=== PATIENT | female | born 1980 | race Caucasian/White ===

== ENCOUNTER 2016-11-15 09:53 | Outpatient (CLI) | payer OTHER ==
[2016-11-15 10:36] LABS: BASOPHILS % (AUTO) 0.4 % (0.0-2.0); EOSINOPHILS # (AUTO) 0.1 K/uL (0.0-0.4); EOSINOPHILS % (AUTO) 0.9 % (0.0-4.0); HEMATOCRIT 35.7 % (36-48); HEMOGLOBIN 12.2 g/dL (12.0-16.0); LYMPHOCYTES # (AUTO) 1.4 K/uL (1.0-5.5); LYMPHOCYTES % (AUTO) 18.2 % (20.5-51.5); MEAN CORPUSCULAR HEMOGLOBIN 30 pg (27-31); MEAN CORPUSCULAR HGB CONC 34 % (32-36); MEAN CORPUSCULAR VOLUME 87 fL (79.0-98.0); MONOCYTES # (AUTO) 1.1 K/uL (0.0-1.0); MONOCYTES % (AUTO) 13.5 % (1.7-9.3); NEUTROPHILS # (AUTO) 5.3 K/uL (1.8-7.7); PLATELET COUNT (AUTO) 186 K/uL (130-430); RED BLOOD CELL COUNT(AUTO) 4.11 MIL/uL (4.2-6.2); RED CELL DISTRIBUTION WIDTH 12.6 % (9.0-15.0); WHITE BLOOD COUNT (AUTO) 7.9 K/uL (4.8-10.8)
[2016-11-15 10:48] LABS: ALBUMIN 2.6 g/dL (3.4-4.8); CALCIUM 9.1 mg/dL (8.4-11.0); CREATININE 0.54 mg/dL (0.55-1.30); POTASSIUM 4.1 mmol/L (3.5-5.1); TOTAL BILIRUBIN 0.3 mg/dL (0.0-1.0); TOTAL PROTEIN, SERUM 6.9 g/dL (6.4-8.3); URIC ACID 3.5 mg/dL (2.4-7.0)
== END 2016-11-15 18:34 | disposition home or self-care (01) ==
LOC: SLB 09:53
PROVIDERS: ATTEND Specialist
DX: O12.12 Gestational proteinuria, second trimester (principal); O09.513 Supervision of elderly primigravida, third trimester; Z3A.27 27 weeks gestation of pregnancy
CPT/HCPCS: 36415; 80053; 84550-TC; 85025

== ENCOUNTER 2016-11-21 10:49 | Inpatient (IN) | payer OTHER ==
[~2016-11-21] VITALS: Ht 167.6 cm; Wt 90.7 kg
[2016-11-21 12:07] VITALS: BP 139/96; PULSE 106; RESP 18; TEMP 98.4
[2016-11-21] MEDS ORDERED: OXYTOCIN/NORMAL SALINE 1,000 ML IV SCH (13:01)
[2016-11-21] MEDS ORDERED: LR 1,000 ML IV ONE (13:01)
[2016-11-21] MEDS ORDERED: NALBUPHINE HCL 10 MG/ML AMP IM PRN (13:15)
[2016-11-21] MEDS ORDERED: TERBUTALINE SULFATE 1 MG/ML VIAL SUBCUT ONE (13:15)
[2016-11-21] MEDS ORDERED: NALBUPHINE HCL 10 MG/ML AMP IVP PRN (13:15)
[2016-11-21 13:31] LABS: BASOPHILS % (AUTO) 0.3 % (0.0-2.0); EOSINOPHILS % (AUTO) 0.5 % (0.0-4.0); HEMATOCRIT 32.4 % (36-48); HEMOGLOBIN 11.4 g/dL (12.0-16.0); LYMPHOCYTES # (AUTO) 1.4 K/uL (1.0-5.5); LYMPHOCYTES % (AUTO) 17.7 % (20.5-51.5); MEAN CORPUSCULAR HEMOGLOBIN 30 pg (27-31); MEAN CORPUSCULAR HGB CONC 35 % (32-36); MEAN CORPUSCULAR VOLUME 85 fL (79.0-98.0); MONOCYTES % (AUTO) 13.1 % (1.7-9.3); NEUTROPHILS # (AUTO) 5.4 K/uL (1.8-7.7); NEUTROPHILS % (AUTO) 68.4 % (40.0-70.0); PLATELET COUNT (AUTO) 162 K/uL (130-430); RED CELL DISTRIBUTION WIDTH 12.5 % (9.0-15.0); WHITE BLOOD COUNT (AUTO) 7.8 K/uL (4.8-10.8)
[2016-11-21 13:33] LABS: BILIRUBIN,URINE NEGATIVE (NEGATIVE); CLARITY/URINE HAZY (CLEAR); COLOR,URINE YELLOW (YELLOW); GLUCOSE,URINE NEGATIVE (NEGATIVE); KETONES,URINE NEGATIVE (NEGATIVE); LEUKOCYTE ESTERASE ,URINE NEGATIVE (NEGATIVE); NITRITE, URINE NEGATIVE (NEGATIVE); PROTEIN URINE 2+ (NEGATIVE); UROBILINOGEN,URINE 0.2 (0.2-1.0)
[2016-11-21 13:37] LABS: BLOOD, URINE TRACE (NEGATIVE)
[2016-11-21 13:43] LABS: WBC,URINE 0-3 /HPF (0-3)
[2016-11-21 13:44] LABS: BACTERIA,URINE FEW /HPF (None Seen); MUCUS,URINE 1+ /LPF (None Seen)
[2016-11-21] MEDS ORDERED: LIDOCAINE PF 1% 30ML(POUR BTL) INJ ONE (15:00)
[2016-11-21] MEDS ORDERED: fentaNYL CITRATE/PF 100 MCG/2 ML AMP EP ONE (16:29)
[2016-11-21] MEDS ORDERED: FENT2mCg/mL-ROPIVA0.2%/NS EPID 150 ML EP ONE (16:29)
[2016-11-21] MEDS ORDERED: fentaNYL CITRATE/PF 100 MCG/2 ML AMP ONE (16:29)
[2016-11-21] MEDS ORDERED: FENT2mCg/mL-ROPIVA0.2%/NS EPID 150 ML EP SCH (16:29)
[2016-11-21] MEDS ORDERED: AMPICILLIN SODIUM 2 GM in NS 100 ML IV ONE (17:00)
[2016-11-21] MEDS: AMPICILLIN SODIUM 1 GM in NS 50 ML IV SCH (20:54)
[2016-11-21] MEDS: LR 1,000 ML IV SCH (20:55)
[2016-11-22] MEDS ORDERED: fentaNYL CITRATE/PF 100 MCG/2 ML AMP IVP ONE
[2016-11-22] MEDS: AMPICILLIN SODIUM 1 GM in NS 50 ML IV SCH ×3 (01:06→09:13)
[2016-11-22] MEDS ORDERED: FENT2mCg/mL-ROPIVA0.2%/NS EPID 150 ML EP ONE (01:09)
[2016-11-22] MEDS: LR 1,000 ML IV SCH (09:07)
[2016-11-22] MEDS ORDERED: OXYTOCIN/NORMAL SALINE 1,000 ML IV SCH ×2 (09:35→15:33)
[2016-11-22] MEDS ORDERED: OXYTOCIN/NORMAL SALINE 1,000 ML IV ONE (15:33)
[2016-11-22] MEDS ORDERED: OXYTOCIN 10 UNIT/ML VIAL ONE (15:41)
[2016-11-22] MEDS ORDERED: LANOLIN 7 GM OINT. TP PRN (15:45)
[2016-11-22] MEDS ORDERED: HYDROCORTISONE 0.5%, 28.35 GM TOPICAL CREAM TP PRN (15:45)
[2016-11-22] MEDS ORDERED: DERMOPLAST SPRAY TP PRN (15:45)
[2016-11-22] MEDS ORDERED: DOCUSATE SODIUM 100 MG CAPSULE PO PRN (15:45)
[2016-11-22] MEDS ORDERED: OXYCODONE/ACETAMINOPHEN 5-325 TABLET PO PRN ×2 (15:45)
[2016-11-22] MEDS ORDERED: METHYLERGONOVINE MALEATE 0.2 MG TABLET PO PRN (15:45)
[2016-11-22] MEDS ORDERED: RHO(D) IMMUNE GLOBULIN/MALTOSE 1500 UNITS/1.3 ML (WINHRO) IM PRN (15:45)
[2016-11-22] MEDS ORDERED: GLYCERIN/WITCH HAZEL (TUCKS PADS) TP PRN (15:45)
[2016-11-22] MEDS ORDERED: IBUPROFEN 600 MG TABLET PO PRN (15:45)
[2016-11-22] MEDS ORDERED: MEASLES,MUMPS&RUBELLA VACC/PF 12500 UNIT/0.5 ML VIAL SUBQ PRN (15:45)
[2016-11-22] MEDS ORDERED: ANUSOL 1 EA SUPP.RECT (PREPARATION H) RC PRN (15:45)
[2016-11-22] MEDS ORDERED: SENNOSIDES/DOCUSATE SODIUM 1 TAB TABLET(SENOKOT-S) PO PRN (15:45)
[2016-11-22] MEDS: IBUPROFEN 600 MG TABLET PO SCH (17:51)
[2016-11-22] MEDS ORDERED: TEMAZEPAM 15 MG CAPSULE PO PRN (21:00)
[2016-11-23] MEDS: IBUPROFEN 600 MG TABLET PO SCH ×4 (00:18→17:49)
[2016-11-23 08:42] LABS: HEMATOCRIT 25.3 % (36-48); HEMOGLOBIN 8.6 g/dL (12.0-16.0)
[2016-11-23] MEDS ORDERED: LIDOCAINE PF 2%, 200 MG/10 ML AMPUL.LUER (EPIDURAL) INJ ONE (15:00)
== END 2016-11-23 20:25 | disposition home or self-care (01) | DRG 775 ==
LOC: SPU 10:49
PROVIDERS: ADMIT Specialist; ATTEND Specialist
PROC: 10D07Z6 Extraction of Products of Conception, Vacuum, Via Natural or Artificial Opening (ICD-10-PCS; principal; 2016-11-20)
PROC: 3E0S3CZ (ICD-10-PCS; 2016-11-20)
PROC: 00HU33Z Insertion of Infusion Device into Spinal Canal, Percutaneous Approach (ICD-10-PCS; 2016-11-20)
PROC: 0W8NXZZ Division of Female Perineum, External Approach (ICD-10-PCS; 2016-11-20)
PROC: 30233N1 Transfusion of Nonautologous Red Blood Cells into Peripheral Vein, Percutaneous Approach (ICD-10-PCS; 2016-11-20)
DX: O42.913 Preterm premature rupture of membranes, unspecified as to length of time between rupture and onset of labor, third trimester (principal); O69.81X0 Labor and delivery complicated by cord around neck, without compression, not applicable or unspecified; Z37.0 Single live birth; Z3A.36 36 weeks gestation of pregnancy
CPT/HCPCS: 36415; 81000-TC; 85018-TC; 85025; 86592; 86870; 86886; 86900; 86901; J0290; J2001; J2590; J2790; J3010; J7120

== ENCOUNTER 2018-04-10 05:05 | Inpatient (IN) | payer OTHER ==
[~2018-04-10] VITALS: Ht 167.6 cm; Wt 73.0 kg
[2018-04-10] MEDS ORDERED: LR 1,000 ML IV ONE (05:52)
[2018-04-10] MEDS ORDERED: MISOPROSTOL 100 MCG TABLET (CYTOTEC) VG ONE (06:00)
[2018-04-10 06:12] VITALS: BP_SYST 115
[2018-04-10 06:27] LABS: BASOPHILS # (AUTO) 0.1 K/uL (0.0-0.2); BASOPHILS % (AUTO) 1.7 % (0.0-2.0); EOSINOPHILS # (AUTO) 0.1 K/uL (0.0-0.4); HEMATOCRIT 38.8 % (36-48); HEMOGLOBIN 13.2 g/dL (12.0-16.0); LYMPHOCYTES # (AUTO) 1.8 K/uL (1.0-5.5); LYMPHOCYTES % (AUTO) 31.3 % (20.5-51.5); MEAN CORPUSCULAR HEMOGLOBIN 31 pg (27-31); MEAN CORPUSCULAR HGB CONC 34 % (32-36); MEAN CORPUSCULAR VOLUME 90 fL (79.0-98.0); MONOCYTES # (AUTO) 0.6 K/uL (0.0-1.0); MONOCYTES % (AUTO) 10.8 % (1.7-9.3); NEUTROPHILS # (AUTO) 3.2 K/uL (1.8-7.7); NEUTROPHILS % (AUTO) 54.2 % (40.0-70.0); PLATELET COUNT (AUTO) 253 K/uL (130-430); RED BLOOD CELL COUNT(AUTO) 4.33 MIL/uL (4.2-6.2); RED CELL DISTRIBUTION WIDTH 12.1 % (9.0-15.0); WHITE BLOOD COUNT (AUTO) 5.8 K/uL (4.8-10.8)
[2018-04-10] MEDS: LR 1,000 ML IV SCH (07:18)
[2018-04-10] MEDS ORDERED: fentaNYL CITRATE/PF 100 MCG/2 ML AMP IVP ONE (08:51)
[2018-04-10] MEDS ORDERED: ONDANSETRON HCL 4 MG/2 ML VIAL IVP ONE (08:51)
[2018-04-10] MEDS ORDERED: NS IRRIG SOLN 1000 ML IR ONE (08:51)
[2018-04-10] MEDS ORDERED: KETOROLAC TROMETHAMINE 30 MG VIAL IVP ONE (08:51)
[2018-04-10] MEDS ORDERED: MIDAZOLAM HCL 5 MG/5 ML VIAL IVP ONE (08:51)
[2018-04-10] MEDS: MISOPROSTOL 100 MCG TABLET (CYTOTEC) VG SCH ×2 (12:10→16:25)
[2018-04-10] MEDS: MISOPROSTOL 100 MCG TABLET (CYTOTEC) PO SCH (17:46)
[2018-04-11] MEDS: MISOPROSTOL 100 MCG TABLET (CYTOTEC) PO SCH ×5 (00:04→18:44)
[2018-04-11] MEDS: chlorproMAZINE HCL 50 MG/ 2 ML AMP IM SCH ×4 (04:40→22:56)
[2018-04-11] MEDS: HYDROmorphone 2 MG/ML VIAL IVP PRN ×4 (04:40→22:56)
[2018-04-11] MEDS ORDERED: BENAZEPRIL HCL 20 MG TABLET (LOTENSIN) PO ONE (22:30)
[2018-04-11] MEDS ORDERED: MISOPROSTOL 100 MCG TABLET (CYTOTEC) PO SCH (23:30)
[2018-04-12] MEDS ORDERED: MISOPROSTOL 100 MCG TABLET (CYTOTEC) PO SCH (05:00)
[2018-04-12] MEDS: LR 1,000 ML IV SCH (05:05)
[2018-04-12] MEDS ORDERED: OXYTOCIN/0.9 % SODIUM CHLORIDE 1,000 ML IV SCH (06:51)
[2018-04-12] MEDS ORDERED: OXYTOCIN/0.9 % SODIUM CHLORIDE 1,000 ML IV ONE ×2 (07:01→09:23)
[2018-04-12] MEDS ORDERED: CEFAZOLIN 2 GM IVPB PREMIX 50 ML IV ONE (07:45)
[2018-04-12] MEDS ORDERED: BENAZEPRIL HCL 20 MG TABLET (LOTENSIN) PO SCH ×2 (09:00→22:00)
[2018-04-12 09:25] VITALS: BP_SYST 112
[2018-04-12] MEDS ORDERED: METHYLERGONOVINE MALEATE 0.2 MG TABLET PO PRN (09:30)
[2018-04-12] MEDS ORDERED: fentaNYL CITRATE/PF 100 MCG/2 ML AMP IVP PRN ×2 (09:30)
[2018-04-12] MEDS ORDERED: RHO(D) IMMUNE GLOBULIN/MALTOSE 1500 UNITS/1.3 ML (WINHRO) IM PRN (09:30)
[2018-04-12] MEDS ORDERED: HYDROcodone/ACETAMIN 5-325 MG TAB (NORCO/ VICODIN) PO PRN (09:30)
[2018-04-12] MEDS ORDERED: DERMOPLAST SPRAY TP PRN (09:30)
[2018-04-12] MEDS ORDERED: OXYCODONE/ACETAMINOPHEN 5-325 TABLET PO PRN (09:30)
[2018-04-12] MEDS ORDERED: SENNOSIDES/DOCUSATE SODIUM 1 TAB TABLET(SENOKOT-S) PO PRN (09:30)
[2018-04-12] MEDS ORDERED: IBUPROFEN 600 MG TABLET PO SCH (12:00)
[2018-04-13] MEDS ORDERED: BENAZEPRIL HCL 20 MG TABLET (LOTENSIN) PO SCH (09:00)
== END 2018-04-12 14:35 | disposition home or self-care (01) | DRG 770 ==
LOC: SPU 05:05
PROVIDERS: ADMIT Specialist; ATTEND Specialist
PROC: 3E0P7VZ Introduction of Hormone into Female Reproductive, Via Natural or Artificial Opening (ICD-10-PCS; 2018-04-10)
PROC: 30233S1 Transfusion of Nonautologous Globulin into Peripheral Vein, Percutaneous Approach (ICD-10-PCS; 2018-04-12)
PROC: 10D17ZZ Extraction of Products of Conception, Retained, Via Natural or Artificial Opening (ICD-10-PCS; principal; 2018-04-12 09:00)
DX: O02.1 Missed abortion (principal); O16.2 Unspecified maternal hypertension, second trimester; Z3A.16 16 weeks gestation of pregnancy
CPT/HCPCS: 36415; 76805-TC; 81002-TC; 85025; 86592; 86886; 86900; 86901; 88305; J0690; J1170; J1885; J2250; J2405; J2590; J2790; J3010; J3230; J7120